=== PATIENT | male | born 1960 | race Caucasian/White ===

== ENCOUNTER 2017-11-12 19:05 | Observation (INO) | payer OTHER, BC ==
--- NOTE | 2017-11-12 20:21 | ER Document Report ---
ED Medical Screen (RME) - General Chief Complaint: Chest Pain > 30 Stated Complaint: SHORTNESS OF BREATH Time Seen by Provider: 11/12/17 20:20 Notes: 2 days of chest pain and chest tightness with shortness of breath. No previous history of coronary artery disease. TRAVEL OUTSIDE OF THE [place] IN LAST 30 DAYS: No - Related Data Allergies/Adverse Reactions: No Known Allergies Allergy (Unverified 11/12/17 19:06) Past Medical History - Past Medical History Cardiac Medical History: Reports: Hx Hypercholesterolemia, Hx Hypertension Endocrine Medical History: Reports: Hx Diabetes Mellitus Type 2 Past Surgical History: Reports: Hx Orthopedic Surgery - toe removed - Immunizations Hx Diphtheria, Pertussis, Tetanus Vaccination: Yes Physical Exam - Vital signs Vitals: Temp Pulse Resp BP Pulse Ox 98.2 F 73 20 164/77 H 97 11/12/17 19:28 11/12/17 19:28 11/12/17 19:28 11/12/17 19:28 11/12/17 19:28 Course - Vital Signs Vital signs: Temp Pulse Resp BP Pulse Ox 98.2 F 73 20 164/77 H 97 11/12/17 19:28 11/12/17 19:28 11/12/17 19:28 11/12/17 19:28 11/12/17 19:28
--- NOTE | 2017-11-12 21:40 | RADIOLOGY REPORT (SQ) ---
EXAM DESCRIPTION: CHEST PA/LAT COMPLETED DATE/TIME: 11/12/2017 9:23 pm REASON FOR STUDY: cp COMPARISON: 09/21/2010 EXAM PARAMETERS: NUMBER OF VIEWS: two views TECHNIQUE: Digital Frontal and Lateral radiographic views of the chest acquired. RADIATION DOSE: NA LIMITATIONS: none FINDINGS: LUNGS AND PLEURA: No consolidation, masses or pneumothorax. No pleural effusion. MEDIASTINUM AND HILAR STRUCTURES: Stable. HEART AND VASCULAR STRUCTURES: Heart upper limits of normal size. No evidence for failure. BONES: No acute findings. HARDWARE: None in the chest. OTHER: No other significant finding. IMPRESSION: No acute findings. TECHNICAL DOCUMENTATION: JOB ID: [id number] [place]-72 2010 [employer]- All Rights Reserved
[2017-11-12 21:44] LABS: ABSOLUTE BASOPHILS # (AUTO) 0.1 10^3/uL (0.0-0.2); ABSOLUTE EOSINOPHILS # (AUTO) 0.1 10^3/uL (0.0-0.6); ABSOLUTE LYMPHOCYTES (AUTO) 1.1 10^3/uL (0.5-4.7); ABSOLUTE MONOCYTES (AUTO) 1.4 10^3/uL (0.1-1.4); ABSOLUTE NEUT (AUTO) 8.8 10^3/uL (1.7-8.2); BASOPHILS % (AUTO) 0.5 % (0-2); EOSINOPHILS % (AUTO) 0.8 % (0-6); HEMATOCRIT 40.9 % (37.9-51.0); HEMOGLOBIN 13.6 g/dL (13.5-17.0); LYMPHOCYTES % (AUTO) 9.3 % (13-45); MEAN CORPUSCULAR HEMOGLOBIN 27.7 pg (27.0-33.4); MEAN CORPUSCULAR HGB CONC 33.3 g/dL (32.0-36.0); MEAN CORPUSCULAR VOLUME 83 fl (80-97); MONOCYTES % (AUTO) 12.1 % (3-13); PLATELET COUNT 287 10^3/uL (150-450); RED BLOOD COUNT 4.91 10^6/uL (4.35-5.55); RED CELL DISTRIBUTION WIDTH 14.7 % (11.5-14.0); SEGMENTED NEUTROPHILS % (AUTO) 77.3 % (42-78); TOTAL CELLS COUNTED % (AUTO) 100 %; WHITE BLOOD COUNT 11.4 10^3/uL (4.0-10.5)
[2017-11-12 22:16] LABS: ALANINE AMINOTRANSFERASE 54 U/L (21-72); ALBUMIN 4.1 g/dL (3.5-5.0); ALKALINE PHOSPHATASE 51 U/L (38-126); ANION GAP 12 (5-19); ASPARTATE AMINO TRANSFERASE 23 U/L (17-59); BILIRUBIN,DIRECT 0.3 mg/dL (0.0-0.4); BILIRUBIN,TOTAL 0.3 mg/dL (0.2-1.3); BLOOD UREA NITROGEN 20 mg/dL (7-20); CALCIUM 9.3 mg/dL (8.4-10.2); CARBON DIOXIDE 29 mmol/L (22-30); CHLORIDE 95 mmol/L (98-107); GLUCOSE 345 mg/dL (75-110); POTASSIUM 4.6 mmol/L (3.6-5.0); SODIUM 135.9 mmol/L (137-145); TOTAL PROTEIN 6.7 g/dL (6.3-8.2)
--- NOTE | 2017-11-12 23:15 | ER Document Report ---
ED Cardiac - General Chief Complaint: Chest Pain > 30 Stated Complaint: SHORTNESS OF BREATH Time Seen by Provider: 11/12/17 20:20 Notes: Patient is a 57-year-old male that comes emergency department for chief complaint of chest pain. Family states that he walked into the store, was pale and panting, stated that he had chest pain that radiated to his neck, stated that he "felt like he was having a heart attack". This happened during the afternoon. Patient states symptoms resolved and now he feels fine. He denies history of [place], past medical history includes hypertension, hyperlipidemia, type 2 diabetes, and a Charcot foot (wearing therapeutic boot). He does not smoke, no first-degree family history of [place], no history of blood clot. He reports generalized other symptoms including intermittent cough he cannot get rid of and passing of gas. TRAVEL OUTSIDE OF THE [place] IN LAST 30 DAYS: No - Related Data Allergies/Adverse Reactions: No Known Allergies Allergy (Unverified 11/12/17 19:06) Past Medical History - General Information source: Patient - Social History Smoking Status: Never Smoker Chew tobacco use (# tins/day): No Frequency of alcohol use: None Drug Abuse: None Lives with: Family Family History: Reviewed & Not Pertinent Patient has suicidal ideation: No Patient has homicidal ideation: No - Past Medical History Cardiac Medical History: Reports: Hx Hypercholesterolemia, Hx Hypertension Endocrine Medical History: Reports: Hx Diabetes Mellitus Type 2 Renal/ Medical History: Denies: Hx Peritoneal Dialysis Past Surgical History: Reports: Hx Orthopedic Surgery - toe removed - Immunizations Hx Diphtheria, Pertussis, Tetanus Vaccination: Yes Review of Systems - Review of Systems Constitutional: No symptoms reported EENT: No symptoms reported Cardiovascular: See HPI Respiratory: See HPI Gastrointestinal: No symptoms reported Genitourinary: No symptoms reported Male Genitourinary: No symptoms reported Musculoskeletal: No symptoms reported Skin: No symptoms reported Hematologic/Lymphatic: No symptoms reported Neurological/Psychological: No symptoms reported Physical Exam - Vital signs Vitals: Temp Pulse Resp BP Pulse Ox 98.2 F 73 20 164/77 H 97 11/12/17 19:28 11/12/17 19:28 11/12/17 19:28 11/12/17 19:28 11/12/17 19:28 Interpretation: Normal - General General appearance: Appears well, Alert In distress: None - HEENT Head: Normocephalic, Atraumatic Eyes: No: Normal - Left eye does not appear to be in use Extraocular movements intact: Yes Eyelashes: Normal Pupils: PERRL Mucous membranes: Normal Pharynx: Normal Neck: Normal - Respiratory Respiratory status: No respiratory distress Chest status: Nontender Breath sounds: Normal. No: Decreased air movement, Wheezing Chest palpation: Normal - Cardiovascular Rhythm: Regular. No: Tachycardia Heart sounds: Normal auscultation, S1 appreciated, S2 appreciated Murmur: No - Abdominal Inspection: Normal Distension: No distension Bowel sounds: Normal Tenderness: Nontender. No: Tender, Guarding - Back Back: Normal, Nontender. No: Tender - Extremities General upper extremity: Normal inspection, Nontender, Normal ROM, Normal strength General lower extremity: Other - Protective shoe on left foot, large protective/ forming boot on right foot and lower leg. No: Edema - Neurological Neuro grossly intact: Yes Cognition: Normal Orientation: AAOx4 Andrew Coma Scale Eye Opening: Spontaneous Andrew Coma Scale Verbal: Oriented [place] Coma Scale Motor: Obeys Commands [place] Coma Scale Total: 15 Speech: Normal Motor strength normal: LUE, RUE, LLE, RLE Sensory: Normal - Psychological Associated symptoms: Normal affect, Normal mood - Skin Skin Temperature: Warm Skin Moisture: Dry Skin Color: Normal Course - Re-evaluation Re-evalutation: EKG shows minimal ST segment elevation in the inferior leads, he had 3 EKGs total tonight and he showed no significant change. He is currently asymptomatic. His reported symptoms are concerning, he has multiple risk factors, his heart score is 6. CBC shows mild leukocytosis with no specific shift. Nonspecific. Chemistry shows hyperglycemia with no acidosis. Mild hyponatremia. D-dimer is not significantly elevated. Discussed with patient. Because of his multiple risk factors, concerning symptoms, and elevated heart score I recommended he be admitted for telemetry observation. Patient and family in agreement with this. Discussed with hospitalist Dr. Millan, patient will be accepted for telemetry monitoring. - Vital Signs Vital signs: Temp Pulse Resp BP Pulse Ox 98.2 F 73 20 164/77 H 97 11/12/17 19:28 11/12/17 19:28 11/12/17 19:28 11/12/17 19:28 11/12/17 19:28 - Laboratory Result Diagrams: 11/12/17 21:35 11/12/17 21:35 Laboratory results interpreted by me: 11/12/17 11/12/17 21:35 21:35 WBC 11.4 H RDW 14.7 H Lymphocytes % 9.3 L Absolute Neutrophils 8.8 H Sodium 135.9 L Chloride 95 L Glucose 345 H Discharge - Discharge Clinical Impression: Chest pain Qualifiers: Chest pain type: unspecified Qualified Code(s): R07.9 - Chest pain, unspecified Condition: Stable Disposition: ADMITTED OBSERVATION Admitting Provider: Hospitalist Unit Admitted: Telemetry
[2017-11-12] MEDS ORDERED: ASPIRIN 81 MG TABLET, CHEWABLE PO ONE (23:53)
[2017-11-13] MEDS ORDERED: INSULIN GLARGINE,HUM.REC.ANLOG 1,000 UNIT/10 ML UNIT SUBCUT ONE (01:19)
[2017-11-13] MEDS ORDERED: GLUCAGON,HUMAN RECOMB 1 MG INJ IM PRN (01:25)
[2017-11-13] MEDS ORDERED: DEXTROSE 50%-WATER 25 GM/50 ML DISP.SYRIN IV PRN ×2 (01:25)
[2017-11-13] MEDS ORDERED: NITROGLYCERIN 0.4 MG/TAB 25 TAB/BOTTLE SL PRN (01:25)
[2017-11-13] MEDS ORDERED: DEXTROSE 40% GEL 15 GM TUBE PO PRN ×2 (01:25)
[2017-11-13] MEDS ORDERED: ENOXAPARIN SODIUM INJ 150 MG/1 ML DISP.SYRIN SUBCUT ONE (02:00)
[2017-11-13] MEDS ORDERED: ASPIRIN 81 MG TABLET, CHEWABLE PO ONE (02:00)
--- NOTE | 2017-11-13 02:48 | PDOC H&P ---
History of Present Illness Admission Date/PCP: 11/13/17 00:30 Patient complains of: Chest pressure and pain across his shoulders History of Present Illness: SAFIA CHRISTIE is a 57 year old male who was in his normal state of health until today when he developed pressure in his chest and pain across his neck and shoulders. He presented to the emergency room where he was found to have ST elevations but not hyper acute changes. Enzymes were negative and patient was referred to us for further management and evaluation. Past Medical History Cardiac Medical History: Reports: Hyperlipidema, Hypertension Pulmonary Medical History: Reports: Chronic Obstructive Pulmonary Disease (COPD) , Sleep Apnea EENT Medical History: Reports: None Neurological Medical History: Reports: Other - Diabetic neuropathy Endocrine Medical History: Reports: Diabetes Mellitus Type 2 Musculoskeltal Medical History: Reports: Arthritis, Other - Charcot joint bilaterally Past Surgical History Past Surgical History: Reports: Orthopedic Surgery - toe removed Social History Information Source: Patient Lives with: Family, Spouse/Significant other Smoking Status: Never Smoker Frequency of Alcohol Use: Rare Hx Recreational Drug Use: No Drugs: None Hx Prescription Drug Abuse: No - Advance Directive Resuscitation Status: Full Code Surrogate healthcare decision maker:: His spouse Family History Family History: Malignancy Parental Family History Reviewed: Yes Children Family History Reviewed: Yes Sibling(s) Family History Reviewed.: Yes Medication/Allergy Home Medications: Canagliflozin [Invokana] 300 mg PO DAILY 11/13/17 Hydrochlorothiazide 25 mg PO DAILY 11/13/17 Insulin Aspart [Novolog Insulin 100 Unit/1 ml 10 ml] 18 unit SQ ACHS 11/13/17 Insulin Glargine,Hum.rec.anlog [Lantus] 100 unit SQ QHS 11/13/17 Losartan Potassium 50 mg PO DAILY 11/13/17 Metformin HCl [Metformin HCl ER] 1,000 mg PO BID 11/13/17 Metoprolol Succinate 100 mg PO DAILY 11/13/17 Simvastatin [Zocor 40 mg Tablet] 20 mg PO QHS 11/13/17 Spironolactone 25 mg PO DAILY 11/13/17 Allergies/Adverse Reactions: No Known Allergies Allergy (Unverified 11/12/17 19:06) Review of Systems Constitutional: ABSENT: anorexia, chills, fatigue, weakness Eyes: PRESENT: visual disturbances - Blind in the left eye Ears: ABSENT: hearing changes Nose, Mouth, and Throat: ABSENT: mouth pain, sore throat Cardiovascular: PRESENT: as per HPI Respiratory: ABSENT: cough, dyspnea, hemoptysis Gastrointestinal: ABSENT: abdominal pain, constipation, diarrhea, heartburn Genitourinary: ABSENT: dysuria, hematuria Musculoskeletal: ABSENT: joint swelling Integumentary: ABSENT: rash, wounds Neurological: PRESENT: abnormal gait, paresthesias Psychiatric: ABSENT: anxiety, depression, homidical ideation, suicidal ideation Endocrine: PRESENT: other - Hemoglobin A1c generally runs 7 or below Hematologic/Lymphatic: ABSENT: easy bleeding, easy bruising Physical Exam Vital Signs: Temp Pulse Resp BP Pulse Ox 98.2 F 73 20 164/77 H 97 11/12/17 19:28 11/12/17 19:28 11/12/17 19:28 11/12/17 19:28 11/12/17 19:28 General appearance: PRESENT: no acute distress, cooperative, morbidly obese Head exam: PRESENT: atraumatic, normocephalic Eye exam: PRESENT: other - Cornea opacified left eye Ear exam: PRESENT: normal external ear exam Neck exam: ABSENT: carotid bruit, JVD, meningismus Respiratory exam: PRESENT: chest wall tenderness, clear to auscultation julia, symmetrical, unlabored. ABSENT: accessory muscle use Cardiovascular exam: PRESENT: RRR. ABSENT: diastolic murmur, irregular rhythm, systolic murmur GI/Abdominal exam: PRESENT: normal bowel sounds, soft. ABSENT: organolmegaly, tenderness Rectal exam: PRESENT: deferred Extremities exam: PRESENT: other - Large ulcer dorsum of right foot full- thickness without purulent drainage Neurological exam: PRESENT: alert, awake, oriented to person, oriented to place , oriented to time, oriented to situation, abnormal gait Psychiatric exam: PRESENT: appropriate affect, normal mood. ABSENT: homicidal ideation, suicidal ideation Skin exam: PRESENT: dry, warm. ABSENT: cyanosis, intact - Ulcer on right foot, rash Results Laboratory Results: 11/12/17 11/12/17 11/12/17 21:35 21:35 21:35 WBC 11.4 H Hgb 13.6 Hct 40.9 Plt Count 287 D-Dimer Sodium 135.9 L Potassium 4.6 BUN 20 Creatinine 0.90 Glucose 345 H Troponin I < 0.012 Albumin 4.1 11/12/17 11/13/17 21:35 00:15 WBC Hgb Hct Plt Count D-Dimer 0.33 Sodium Potassium BUN Creatinine Glucose Troponin I < 0.012 Albumin EKG Comments: Slight ST elevations in the inferolateral leads unchanged over serial tracings Impressions: Chest X-Ray 11/12/17 20:21 IMPRESSION: No acute findings. 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; Z79.4 - care home (current) use of insulin; Z79.4 - intermodal dispatcher (current) use of insulin; Z79.4 - care home ( current) use of insulin; Z79.4 - care home (current) use of insulin Is this a current diagnosis for this admission?: Yes (3) HTN (hypertension) Qualifiers: Hypertension type: essential hypertension Qualified Code(s): I10 - Essential (primary) hypertension Is this a current diagnosis for this admission?: Yes (4) TRACEY (obstructive sleep apnea) Is this a current diagnosis for this admission?: Yes (5) 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 He will receive full dose Lovenox. He is already on an ARB and a beta-berenice, these will be continued. We will consult with cardiology as to the best means of stress testing as the patient obviously cannot run on a treadmill. He will be placed on telemetry. Serial enzymes and electrocardiograms will be done. At the patient's request we will discontinue his Invokana and start him back on Glucotrol as he had better response to that medication. Patient will receive local care to his foot ulcer.
[2017-11-13 04:17] LABS: APPEARANCE,URINE SLIGHTLY-CLOUDY; BILIRUBIN,URINE NEGATIVE (NEGATIVE); COLOR,URINE YELLOW; GLUCOSE, URINE >=500 mg/dL (NEGATIVE); KETONES,URINE NEGATIVE (NEGATIVE); LEUKOCYTE ESTERASE,URINE NEGATIVE (NEGATIVE); NITRITE,URINE NEGATIVE (NEGATIVE); PROTEIN,URINE NEGATIVE (NEGATIVE); URINE SPECIFIC GRAVITY 1.022; UROBILINOGEN,URINE NEGATIVE mg/dL (<2.0)
[2017-11-13 06:31] LABS: CHOLESTEROL 114.26 mg/dL (0-200); TRIGLYCERIDES 151 mg/dL (<150)
[2017-11-13] MEDS: INSULIN LISPRO 100 UNIT/ML 3 ML VIAL SUBCUT PRN ×2 (06:31→22:30)
[2017-11-13 06:40] LABS: CREATINE KINASE MB 0.37 ng/mL (<4.55)
[2017-11-13 06:43] LABS: DIRECT LDL 60 mg/dL (<100)
[2017-11-13 06:45] LABS: TROPONIN I < 0.012 ng/mL
[2017-11-13 06:46] LABS: VLDL CHOLESTEROL 30.2 mg/dL (10-31)
[2017-11-13] MEDS: INSULIN LISPRO 100 UNIT/ML 3 ML VIAL SUBCUT SCH ×3 (09:45→18:53)
[2017-11-13] MEDS: FAMOTIDINE 20 MG TABLET PO SCH ×2 (09:45→22:30)
[2017-11-13] MEDS: DOCUSATE SODIUM 100 MG CAPSULE PO SCH ×2 (09:45→18:51)
--- NOTE | 2017-11-13 12:01 | Progress Note ---
Provider Note Provider Note: Patient seen, examined, and chart reviewed. Patient reports that at work he lifts heavy objects ranging from 35 to 60 pounds daily. Patient states yesterday he was lifting extremely heavy object when he shortly afterwards he developed chest pain across his neck and shoulders. Daughter is present in room who reports that patient has been complaining of shortness of breath for the last few days. Patient reports that he has never had anything wrong with his heart and currently does not feel that this is heart related. Currently awaiting recommendations from cardiology. Patient's echo has been ordered and awaiting results. Unsure if cardiology will perform stress test here or recommend transfer for cardiac cath.
[2017-11-13] MEDS ORDERED: SIMVASTATIN 40 MG TABLET PO ONE (12:02)
--- NOTE | 2017-11-13 12:03 | EKG REPORT ---
SEVERITY:- ABNORMAL ECG - SINUS RHYTHM ST ELEVATION SUGGESTS PERICARDITIS : Confirmed by: Bj Atkinson 13-Nov-2017 12:02:39
--- NOTE | 2017-11-13 12:04 | EKG REPORT ---
SEVERITY:- BORDERLINE ECG - SINUS RHYTHM BORDERLINE ST ELEVATION, INFERIOR LEADS : Confirmed by: Bj Atkinson 13-Nov-2017 12:03:38
--- NOTE | 2017-11-13 12:04 | EKG REPORT ---
SEVERITY:- BORDERLINE ECG - SINUS RHYTHM PROBABLE LEFT ATRIAL ABNORMALITY BORDERLINE ST ELEVATION, INFERIOR LEADS : Confirmed by: Bj Atkinson 13-Nov-2017 12:03:46
--- NOTE | 2017-11-13 12:04 | EKG REPORT ---
SEVERITY:- BORDERLINE ECG - SINUS RHYTHM BORDERLINE ST ELEVATION, INFERIOR LEADS : Confirmed by: Bj Atkinson 13-Nov-2017 12:03:53
[2017-11-13 14:46] LABS: CREATINE KINASE MB < 0.22 ng/mL (<4.55); TROPONIN I < 0.012 ng/mL
[2017-11-13] MEDS: ENOXAPARIN SODIUM INJ 150 MG/1 ML DISP.SYRIN SUBCUT SCH (19:16)
--- NOTE | 2017-11-13 19:29 | XCELERA REPORT ---
[address] [address] Transthoracic Echocardiogram Report Name: SAFIA CHRISTIE Age: 57 yrs Gender: Male : 1960 Patient Status: Inpatient [address] Study Date: 11/13/2017 10:36 AM Height: 72 in Weight: 299 lb BSA: 2.5 m2 Procedure: A complete two-dimensional transthoracic echocardiogram was performed (2D, M-mode, spectral and color flow Doppler). The study was technically adequate with some images being suboptimal in quality. Reason For Study: CP Ordering Physician: BJ HAYS Performed By: Jodie Obando Interpretation Summary The left ventricular ejection fraction is normal. Doppler measurements suggest impaired left ventricular relaxation, which is associated with grade I/IV or mild diastolic dysfunction Wall motion cannot be accurately commented on, but no definite regional wall motion abnormalities noted. There is borderline concentric left ventricular hypertrophy. The left ventricle is grossly normal size. The right ventricle is borderline dilated. The right atrium is normal in size Borderline left atrial enlargement. There is no mitral valve stenosis. There is a trace amount of mitral regurgitation No aortic regurgitation is present. There is no aortic valve stenosis There is a trace or physiologic amount of tricuspid regurgitation Tricuspid regurgitation jet envelope not well defined to measure RV systolic pressure accurately. The aortic root is not well visualized but is probably normal size. The inferior vena cava appeared normal and decreased > 50% with respiration (RAP 5-10 mmHg) Minimal pericardial effusion. MMode/2D Measurements & Calculations RVDd: 3.0 cm LVIDd: 4.8 cm FS: 36.6 % Ao root diam: 3.2 cm IVSd: 0.98 cm LVIDs: 3.0 cm EDV(Teich): 105.2 ml LVPWd: 0.98 cm ESV(Teich): 35.4 ml Ao root area: 8.1 cm2 EF(Teich): 66.3 % LA dimension: 3.8 cm Doppler Measurements & Calculations MV E max fortunato: MV P1/2t max fortunato: Ao V2 max: LV V1 max P.2 cm/sec 101.7 cm/sec 130.3 cm/sec 4.9 mmHg MV A max fortunato: MV P1/2t: 78.6 msec Ao max PG: LV V1 max: 91.3 cm/sec 6.8 mmHg 111.1 cm/sec MV E/A: 1.1 MVA(P1/2t): 2.8 cm2 MV dec slope: 378.9 cm/sec2 MV dec time: 0.26 sec PA V2 max: 97.7 cm/sec PA max P.8 mmHg Left Ventricle The left ventricle is grossly normal size. There is borderline concentric left ventricular hypertrophy. The left ventricular ejection fraction is normal. Doppler measurements suggest impaired left ventricular relaxation, which is associated with grade I/IV or mild diastolic dysfunction. Wall motion cannot be accurately commented on, but no definite regional wall motion abnormalities noted. Right Ventricle The right ventricle is borderline dilated. There is normal right ventricular wall thickness. The right ventricular systolic function is normal. Atria The right atrium is normal in size. Borderline left atrial enlargement. Interarterial septum not well visualized and not well dopplered. Cannot comment on ASD/PFO presence. Mitral Valve The mitral valve is grossly normal. There is no mitral valve stenosis. There is a trace amount of mitral regurgitation. Aortic Valve The aortic valve is grossly normal. There is no aortic valve stenosis. No aortic regurgitation is present. Tricuspid Valve The tricuspid valve is not well visualized, but is grossly normal. There is no tricuspid stenosis. There is a trace or physiologic amount of tricuspid regurgitation. Tricuspid regurgitation jet envelope not well defined to measure RV systolic pressure accurately. Pulmonic Valve The pulmonic valve is not well visualized. Great Vessels The aortic root is not well visualized but is probably normal size. The inferior vena cava appeared normal and decreased > 50% with respiration (RAP 5-10 mmHg). Effusions Minimal pericardial effusion. : BJ HAYS > Bj Hays
[2017-11-13 19:44] LABS: TROPONIN I 0.012 ng/mL
[2017-11-13 19:47] LABS: CREATINE KINASE MB < 0.22 ng/mL (<4.55)
[2017-11-13] MEDS ORDERED: INSULIN GLARGINE,HUM.REC.ANLOG 300 UNIT/3 ML INSULN.PEN SUBCUT SCH (22:00)
[2017-11-13] MEDS ORDERED: INSULIN GLARGINE,HUM.REC.ANLOG 1,000 UNIT/10 ML UNIT SUBCUT SCH (22:00)
[2017-11-13] MEDS ORDERED: ASPIRIN 81 MG TABLET, CHEWABLE PO SCH (22:00)
[2017-11-13] MEDS ORDERED: SIMVASTATIN 40 MG TABLET PO SCH (22:00)
[2017-11-14] MEDS ORDERED: ENOXAPARIN SODIUM INJ 150 MG/1 ML DISP.SYRIN SUBCUT ONE (05:39)
[2017-11-14] MEDS: ENOXAPARIN SODIUM INJ 150 MG/1 ML DISP.SYRIN SUBCUT SCH ×2 (05:45→18:33)
[2017-11-14 06:34] LABS: HEMATOCRIT 36.9 % (37.9-51.0); HEMOGLOBIN 12.5 g/dL (13.5-17.0); MEAN CORPUSCULAR HEMOGLOBIN 28.3 pg (27.0-33.4); MEAN CORPUSCULAR HGB CONC 33.8 g/dL (32.0-36.0); MEAN CORPUSCULAR VOLUME 84 fl (80-97); PLATELET COUNT 226 10^3/uL (150-450); RED BLOOD COUNT 4.42 10^6/uL (4.35-5.55); RED CELL DISTRIBUTION WIDTH 14.8 % (11.5-14.0); WHITE BLOOD COUNT 6.9 10^3/uL (4.0-10.5)
--- NOTE | 2017-11-14 07:42 | EKG REPORT ---
SEVERITY:- BORDERLINE ECG - SINUS RHYTHM BORDERLINE ST ELEVATION, INFERIOR LEADS : Confirmed by: Valerie Dao MD 14-Nov-2017 07:40:39
[2017-11-14] MEDS: INSULIN LISPRO 100 UNIT/ML 3 ML VIAL SUBCUT SCH ×3 (08:59→17:12)
--- NOTE | 2017-11-14 09:58 | PDOC CONSULTATION ---
Consultation Consult Date: 11/13/17 Attending physician:: ELADIO BELLA Consult reason:: Chest pain History of Present Illness Admission Date/PCP: 11/13/17 00:30 Patient complains of: Chest pain History of Present Illness: SAFIA CHRISTIE is a 57 year old male who was in his normal state of health until today when he developed pressure in his chest and pain across his neck and shoulders. He presented to the emergency room where he was found to have ST elevations but not hyper acute changes. Enzymes were negative and patient was referred to us for further management and evaluation. Patient actually denied any prior history of myocardial infarction or known CAD. He does have however multiple cardiac risk factors including diabetes along with possible peripheral vascular disease as he has diabetic foot ulcers. I was therefore asked to evaluate patient. Patient has been chest pain-free since admission through the emergency room. Patient already is scheduled to have a 2D echo and a stress test. Past Medical History Cardiac Medical History: Reports: Hyperlipidema, Hypertension Pulmonary Medical History: Reports: Chronic Obstructive Pulmonary Disease (COPD) , Sleep Apnea EENT Medical History: Reports: None Neurological Medical History: Reports: Other - Diabetic neuropathy Endocrine Medical History: Reports: Diabetes Mellitus Type 2 Musculoskeltal Medical History: Reports: Arthritis, Other - Charcot joint bilaterally Past Surgical History Past Surgical History: Reports: Orthopedic Surgery - toe removed Social History Information Source: Patient Lives with: Family, Spouse/Significant other Smoking Status: Former Smoker Frequency of Alcohol Use: Rare Hx Recreational Drug Use: No Drugs: None Hx Prescription Drug Abuse: No - Advance Directive Resuscitation Status: Full Code Surrogate healthcare decision maker:: Patient's is the surrogate decision-maker Family History Family History: DM, Malignancy Parental Family History Reviewed: Yes Children Family History Reviewed: Yes Sibling(s) Family History Reviewed.: Yes Medication/Allergy Home Medications: Acidoph/L.bulg/Bif.b/S.thermop [Bacid Caplet] 1 tab PO DAILY 11/13/17 Canagliflozin [Invokana] 300 mg PO DAILY 11/13/17 Hydrochlorothiazide 25 mg PO DAILY 11/13/17 Insulin Aspart [Novolog Insulin 100 Unit/1 ml 10 ml] 0 unit SUBCUT .SLD SCALE Insulin Aspart [Novolog Insulin 100 Unit/1 ml 10 ml] 18 unit SQ ACHS 01/25/18 Insulin Glargine,Hum.rec.anlog [Lantus] 90 unit SQ QHS 11/13/17 Losartan Potassium 50 mg PO DAILY 11/13/17 Metformin HCl [Metformin HCl ER] 1,000 mg PO BIDBS 11/13/17 Metoprolol Succinate [Toprol Xl 50 mg Tab.sr] 50 mg PO DAILY 11/13/17 Multivitamin [Tab-A-Max (Multiple Vitamin) Tablet] 1 tab PO DAILY 11/13/17 Simvastatin [Zocor 20 mg Tablet] 20 mg PO QHS 11/13/17 Spironolactone 25 mg PO DAILY 11/13/17 Allergies/Adverse Reactions: No Known Allergies Allergy (Unverified 11/12/17 19:06) Review of Systems Review of Systems: Please see history of present illness and past medical history as wall. Constitutional: No fever or chills reported. Head : No recent chronic headaches, recent head injury. Eyes: No recent eye pain, diplopia, redness, discharge, acute visual changes. Ears: No recent chronic ear pain, acute hearing loss, ear discharge. Oral cavity: No recent ulcerations, bleeding, oral cavity discomfort. Neck: No recent acute neck pain reported. Hematologic: No recent easy bruising or bleeding or hematologic malignancy reported. Lymphatic: No recent lymphatic malignancy, chronic lymphadenopathy reported yet Cardiovascular system review: See history of present illness. Respiratory system review: No recent chronic cough, hemoptysis, blood clots in the lungs reported. Mild Shortness of breath on exertion Gastrointestinal system review: Negative for any recent acute or chronic abdominal pain, hematemesis, melena, recent change in bowel habits. Genitourinary system review: No recent acute or chronic hematuria, flank pain, UTI etc. reported. Skin system review: Negative for any recent abnormal bruising, no rash, no pruritus reported. Patient has diabetic foot ulcers. Neurologic: No prior history of strokes, mini strokes, seizure disorder. Psychologic: No history of major psychosis or major depression reported. Musculoskeletal: Minor aches and pains reported. No acute joint swelling reported. Diabetic foot ulcers with some diabetic neuropathy and Charcot's joints Endocrine: No recent polyuria, polydipsia, recent heat or cold intolerance. Physical Exam Vital Signs: Temp Pulse Resp BP Pulse Ox 98.0 F 72 16 137/69 H 95 11/13/17 16:00 11/13/17 19:00 11/13/17 16:00 11/13/17 16:00 11/13/17 16:00 Intake & Output 11/12/17 11/13/17 11/14/17 06:59 06:59 06:59 Intake Total 360 Balance 360 Weight 136 kg 136.078 kg Exam: GENERAL: well-nourished and in no acute distress. Alert and oriented x3 HEAD: Atraumatic, normocephalic. EYES: Pupils equal round and reactive to light, extraocular movements intact, sclera anicteric, conjunctiva are normal. ENT: TMs normal, nares patent, oropharynx clear without exudates. Moist mucous membranes. No oral ulcerations or bleeding gums noted NECK: supple without lymphadenopathy. Trachea is central. No cervical or axillary lymphadenopathy noted. Carotids are 2+, JVD WNL LUNGS: Respiration seems nonlabored, no significant accessory muscle action noted. Breath sounds clear to auscultation bilaterally and equal noted. No wheezes rales or rhonchi noted. No significant dullness noted on percussion. CHEST: Palpation of the chest wall shows no significant chest wall tenderness. No other significant abnormalities noted. HEART: [facility] [employer] WR[employer], No PSH, 1/6 K[place]AN aortic area, 1/6 chester systolic murmur mitral area, no rubs, no gallops. ABDOMEN: Soft, no significant tenderness appreciated, normoactive bowel sounds. No guarding, no rebound. No rigidity noted . No masses appreciated. EXTREMITIES: Pedal pulses are 1-2+, no calf tenderness noted. No clubbing or cyanosis. 1-2+ pedal edema noted NEUROLOGICAL: Focused neurological exam showed no significant neurologic deficit. Normal speech, no focal weakness appreciated. PSYCH: Normal mood, normal affect. Judgment and insight within normal limits. SKIN: Diabetic foot ulcer left foot, plantar aspect. Second toe amputated. MUSCULOSKELETAL EXAM: No significant joint swelling noted. Results Laboratory Results: 11/13/17 11/13/17 03:33 05:50 Triglycerides 151 H Cholesterol 114.26 LDL Cholesterol Direct 60 VLDL Cholesterol 30.2 HDL Cholesterol 44 Urine Color YELLOW Urine Appearance SLIGHTLY-CLOUDY Urine pH 5.0 Ur Specific Ranson 1.022 Urine Protein NEGATIVE Urine Glucose (UA) >=500 H Urine Ketones NEGATIVE Urine Blood SMALL H Urine Nitrite NEGATIVE Ur Leukocyte Esterase NEGATIVE Urine WBC (Auto) 1 Urine RBC (Auto) 1 11/13/17 11/13/17 11/13/17 05:50 13:38 18:45 CK-MB (CK-2) 0.37 < 0.22 < 0.22 Troponin I < 0.012 < 0.012 0.012 EKG Comments: Sinus rhythm with minor ST elevation inferior leads. Impressions: Chest X-Ray 11/12/17 20:21 IMPRESSION: No acute findings. Assessment & Plan - Diagnosis (1) Chest pain Qualifiers: Chest pain type: unspecified Qualified Code(s): R07.9 - Chest pain, unspecified Is this a current diagnosis for this admission?: Yes (2) Abnormal EKG Is this a current diagnosis for this admission?: Yes (3) DM2 (diabetes mellitus, type 2) Qualifiers: Diabetes mellitus complication status: with diabetic arthropathy Diabetes mellitus complication detail: with neuropathic arthropathy Diabetes mellitus shelter insulin use: with shelter use Qualified Code(s): E11.618 - Type 2 diabetes mellitus with other diabetic arthropathy; Z79.4 - USP (current) use of insulin; 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 (current) use of insulin; Z79.4 - USP ( current) use of insulin; Z79.4 - USP (current) use of insulin Is this a current diagnosis for this admission?: Yes (4) HTN (hypertension) Qualifiers: Hypertension type: essential hypertension Qualified Code(s): I10 - Essential (primary) hypertension Is this a current diagnosis for this admission?: Yes (5) Hypercholesteremia Is this a current diagnosis for this admission?: Yes (6) TRACEY (obstructive sleep apnea) Is this a current diagnosis for this admission?: Yes (7) Obesity, morbid, BMI 40.0-49.9 Is this a current diagnosis for this admission?: Yes (8) 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 Fortunately cardiac enzymes are negative but patient has high probability of underlying CAD. Agree with evaluation with nuclear stress test and this has been already scheduled by human service technician. Patient also is scheduled to have a 2D echocardiogram which will be reviewed. Abn EKG: evaluate with echocardiology and NST. Diabetes: Patient has multiple complications of diabetes. Recommend good control of diabetes but avoid any hyper or hypoglycemia. Hypertension: Reasonably well controlled. Blood pressure goal in this patient is 135/85 or less. This was discussed with the patient. Currently blood pressure under reasonable control. Better medication for this patient are TOMY inhibitor/ARB/beta berenice etc. discussed side effects of uncontrolled hypertension and also severe hypotension. Sleep apnea syndrome: Patient will benefit from compliance with CPAP therapy. I will be happy to follow patient regarding this. Obesity: Patient has been advised in weight loss. Charcot's arthropathy: Currently stable. NST and 2D echo. - Time Time Spent: 30 to 50 Minutes - CODE STATUS was discussed, patient remains full code. Surrogate decision-maker unchanged. Multiple medical problems were addressed. More than 50% of the time spent coordinating care, discussing management plans with involved caregivers. Management plans discussed with involved personnels. Medical decision making was of moderate to high complexity , patient's has multiple comorbidities. Medications reviewed and adjusted accordingly: Yes
[2017-11-14] MEDS: INSULIN LISPRO 100 UNIT/ML 3 ML VIAL SUBCUT PRN ×2 (12:13→17:13)
[2017-11-14] MEDS: FAMOTIDINE 20 MG TABLET PO SCH (12:14)
[2017-11-14] MEDS: DOCUSATE SODIUM 100 MG CAPSULE PO SCH ×2 (12:17→17:13)
--- NOTE | 2017-11-14 13:08 | DRAGON STRESS TEST REPORT ---
INTRAVENOUS LEXISCAN CARDIOLITE STRESS TEST USING SINGLE PHOTON EMMISION COMPUTERIZED TOMOGRAPHIC. DATE OF PROCEDURE: November 14, 2017, INDICATION : Chest pain, abnormal EKG CARDIAC RISK FACTORS: Diabetes, hypertension, dyslipidemia RESTING EKG: Sinus rhythm, nonspecific ST elevation, chronic in inferior leads STRESS EKG: No significant changes noted with LexiScan bolus REASON FOR TERMINATION: Protocol. PROCEDURE REPORT: Baseline heart rate 90 beats per minute with blood pressure of 151/59. Patient had no significant complaints. Heart rate at 2 minutes post bolus 106 with a blood pressure of 154/69. 3 minutes post bolus heart rate 100 with blood pressure of 157/62. No significant EKG changes were noted. Patient had no significant complaints during the procedure or postprocedure. Patient injected with Aminophyllin 75 mg at 3 minutes or later after Lexiscan bolus. CONCLUSIONS: Normal EKG and hemodynamic response to IV LexiScan. NUCLEAR DATA: At rest the patient was given 15.21 millicuries of technetium 99 sestamibi injected intravenously. As per protocol rest gated SPECT images were obtained. On day of stress test, the patient was given intravenous LexiScan at a dose of 0.4 mg in 5 mL intravenously, followed by flush with normal saline. Subsequently the stress dose of 45.0 millicuries of technetium 99 sestamibi was injected intravenously. As per protocol stress gated images were obtained. NUCLEAR INTERPRETATION: Both raw and processed data were used for interpretation. Visual, qualitative, computer-generated quantitative data was used. There was good myocardial uptake of technetium compound. Motion artifact and soft tissue attenuations were noted. Increased visceral uptake was noted. No definitive areas of transient perfusion defect noted, No definitive areas of fixed perfusion defect or scars noted. EKG gated imaging showed LV EF at 66 %, rest and stress gated EF similar visually. T. I D. ratio was 1.10. Lung heart ratio noted to be within normal limits 0.35. No significant extracardiac and abnormal radiotracer activities were noted. RV free wall uptake was noted to be WNL. IMPRESSION: Also refer to comments under nuclear interpretation. Also test results needs to be interpreted in the context of pretest probability. 1. No definitive areas of transient perfusion defect noted. 2. There is no definitive scintigraphic evidence of myocardial infarction/scar. 3. EKG gated imaging shows left ventricular ejection fraction of approx. 66 %. 4. Clinical correlation requested as occasionally single vessel disease or balanced ischemia could be missed. In approximately 10% of the cases Lexiscan may not cause adequate vasodilatory stress. 5. Patient would also need to be informed that inability to exercise is increased cardiovascular event risk by itself. Recommendations: Aggressive risk factor modification and medical management. Further evaluation may be needed if continued symptoms or other high risk indicators are noted on clinical evaluation. MTDD
[2017-11-14] MEDS ORDERED: AMINOPHYLLINE INJ/PF 250 MG/10 ML SDV IV ONE (13:24)
[2017-11-14] MEDS ORDERED: REGADENOSON INJ 0.4 MG/5 ML DISP.SYRIN IV ONE (13:24)
--- NOTE | 2017-11-14 16:26 | PDOC DISCHARGE SUMMARY ---
General - Admit/Disc Date/PCP Admission Date/Primary Care Provider: 11/13/17 00:30 Discharge Date: 11/14/17 - Discharge Diagnosis (1) Musculoskeletal pain Is this a current diagnosis for this admission?: Yes Summary: Patient's chest discomfort is secondary to muscular skeletal pain. Patient reported that he had been lifting heavy objects at work when pain occurred. (2) Chest pain Is this a current diagnosis for this admission?: Yes Summary: Ruled out: Patient and nuclear stress test demonstrated no evidence of ischemia. Patient's troponins were also negative as well. Patient's cholesterol medicine was increased patient will need a follow-up PCP in [address] Atkinson in 1 week. (3) Abnormal EKG Is this a current diagnosis for this admission?: Yes Summary: Nuclear stress test negative for ischemia and troponins were negative as well (4) DM2 (diabetes mellitus, type 2) Is this a current diagnosis for this admission?: Yes Summary: Patient's hemoglobin A1c was 8.8. Patient will need a follow-up PCP for adjustment of glycemic medications. (5) HTN (hypertension) Is this a current diagnosis for this admission?: Yes Summary: We will continue patient on current medications. (6) TRACEY (obstructive sleep apnea) Is this a current diagnosis for this admission?: Yes Summary: Patient will need to follow Dr. Atkinson for possible outpatient sleep study. (7) Obesity, morbid, BMI 40.0-49.9 Is this a current diagnosis for this admission?: Yes Summary: Encourage dietary changes and weight loss. - Additional Information Resuscitation Status: Full Code Discharge Diet: Cardiac, Diabetic Discharge Activity: Activity As Tolerated Prescriptions: Simvastatin [Zocor 40 mg Tablet] 40 mg PO QHS #30 tablet Home Medications: Acidoph/L.bulg/Bif.b/S.thermop [Bacid Caplet] 1 tab PO DAILY 11/13/17 Canagliflozin [Invokana] 300 mg PO DAILY 11/13/17 Hydrochlorothiazide 25 mg PO DAILY 11/13/17 Insulin Aspart [Novolog Insulin (Aspart) 100 unit/mL] 0 unit SUBCUT .SLD SCALE 11/13/17 Insulin Aspart [Novolog Insulin (Aspart) 100 unit/mL] 18 unit SQ ACHS 11/13/17 Insulin Glargine,Hum.rec.anlog [Lantus] 90 unit SQ QHS 11/13/17 Losartan Potassium 50 mg PO DAILY 11/13/17 Metformin HCl [Metformin HCl ER] 1,000 mg PO BIDBS 11/13/17 Metoprolol Succinate [Toprol Xl 50 mg Tab.sr] 50 mg PO DAILY 11/13/17 Multivitamin [Tab-A-Max (Multiple Vitamin) Tablet] 1 tab PO DAILY 11/13/17 Spironolactone 25 mg PO DAILY 11/13/17 Aspirin [Aspirin 81 mg Chewable Tablet] 81 mg PO QHS tab.chew 11/14/17 Simvastatin [Zocor 40 mg Tablet] 40 mg PO QHS #30 tablet 11/14/17 History of Present Illness Patient complains of: Chest pain History of Present Illness: SAFIA CHRISTIE is a 57 year old male presents with complaint of chest pain after lifting heavy object at work. Patient states that chest pain was accompanied by shortness of breath. Patient states that he was heavy objects all day long however has never had chest pain like this. Patient was admitted to hospital under observation for chest pain. Hospital Course Hospital Course: Patient is a 57-year-old gentleman that presents to our facility with complaint of chest pain after lifting heavy objects at work. Patient's troponins were negative however EKG did show ST elevation. Patient had nuclear stress test demonstrated no evidence of ischemia. Patient's cholesterol medication was adjusted. Patient was instructed that we need to follow-up with his PCP for better glycemic control. Physical Exam Vital Signs: Temp Pulse Resp BP Pulse Ox 98.4 F 80 19 160/61 H 95 11/14/17 11:52 11/14/17 11:52 11/14/17 11:52 11/14/17 11:52 11/14/17 11:52 Intake & Output 11/13/17 11/14/17 11/15/17 06:59 06:59 06:59 Intake Total 882 Balance 882 Weight 136 kg 136.078 kg 136.078 kg General appearance: PRESENT: no acute distress, well-developed, well-nourished Head exam: PRESENT: atraumatic, normocephalic Eye exam: PRESENT: conjunctiva pink, EOMI. ABSENT: scleral icterus Ear exam: PRESENT: normal external ear exam Mouth exam: PRESENT: moist, tongue midline Neck exam: ABSENT: carotid bruit, JVD, lymphadenopathy, thyromegaly Respiratory exam: PRESENT: clear to auscultation julia. ABSENT: rales, rhonchi, wheezes Cardiovascular exam: PRESENT: RRR. ABSENT: diastolic murmur, rubs, systolic murmur Pulses: PRESENT: normal dorsalis pedis pul Vascular exam: PRESENT: normal capillary refill GI/Abdominal exam: PRESENT: normal bowel sounds, soft. ABSENT: distended, guarding, mass, organolmegaly, rebound, tenderness Rectal exam: PRESENT: deferred Extremities exam: PRESENT: full ROM. ABSENT: calf tenderness, clubbing, pedal edema Neurological exam: PRESENT: alert, awake, oriented to person, oriented to place , oriented to time, oriented to situation, normal gait Psychiatric exam: PRESENT: appropriate affect, normal mood. ABSENT: homicidal ideation, suicidal ideation Skin exam: PRESENT: dry, intact, warm. ABSENT: cyanosis, rash Results Laboratory Results: 11/14/17 05:58 11/14/17 05:58 WBC 6.9 RBC 4.42 Hgb 12.5 L Hct 36.9 L MCV 84 MCH 28.3 MCHC 33.8 RDW 14.8 H Plt Count 226 11/13/17 11/13/17 11/13/17 05:50 13:38 18:45 CK-MB (CK-2) 0.37 < 0.22 < 0.22 Troponin I < 0.012 < 0.012 0.012 Impressions: Chest X-Ray 11/12/17 20:21 IMPRESSION: No acute findings. Plan Time Spent: Less than 30 Minutes
[2017-11-14 17:49] VITALS: BP 137/69
--- NOTE | 2017-11-14 20:19 | PDOC PROGRESS REPORT ---
Subjective Progress Note for:: 11/14/17 Subjective:: Patient seems to be doing better with gradual improvement. Pt is denying any chest arm or neck discomfort. Patient denying any PND, orthopnea. Patient denied any sustained palpitations, dizziness, syncope, near syncope. Patient denying any fever chills. Patient denying any other significant discomfort. Patient is maintaining sinus rhythm. Review of systems: Rest review of systems negative. Medications: Medications have been reviewed. Reason For Visit: CHEST PAIN;FOOT ULCER;TRACEY Physical Exam Vital Signs: Temp Pulse Resp BP Pulse Ox 98.3 F 74 20 137/69 H 97 11/14/17 17:47 11/14/17 17:47 11/14/17 17:47 11/14/17 17:47 11/14/17 17:47 Intake & Output 11/13/17 11/14/17 11/15/17 06:59 06:59 06:59 Intake Total 882 695 Balance 882 695 Weight 136 kg 136.078 kg 136.078 kg Exam: GENERAL: well-nourished and in no acute distress. Alert and oriented x3 HEAD: Atraumatic, normocephalic. EYES: Pupils equal round and reactive to light, extraocular movements intact, sclera anicteric, conjunctiva are normal. ENT: TMs normal, nares patent, oropharynx clear without exudates. Moist mucous membranes. No oral ulcerations or bleeding gums noted NECK: supple without lymphadenopathy. Trachea is central. No cervical or axillary lymphadenopathy noted. Carotids are 2+, JVD WNL LUNGS: Respiration seems nonlabored, no significant accessory muscle action noted. Breath sounds clear to auscultation bilaterally and equal noted. No wheezes rales or rhonchi noted. No significant dullness noted on percussion. CHEST: Palpation of the chest wall shows no significant chest wall tenderness. No other significant abnormalities noted. HEART: [place] [employer], No PSH, 1/6 [place] aortic area, 1/6 chester systolic murmur mitral area, no rubs, no gallops. ABDOMEN: Soft, no significant tenderness appreciated, normoactive bowel sounds. No guarding, no rebound. No rigidity noted . No masses appreciated. EXTREMITIES: Pedal pulses are 1-2+, no calf tenderness noted. No clubbing or cyanosis. 1-2+ pedal edema noted NEUROLOGICAL: Focused neurological exam showed no significant neurologic deficit. Normal speech, no focal weakness appreciated. PSYCH: Normal mood, normal affect. Judgment and insight within normal limits. SKIN: Diabetic foot ulcer left foot, plantar aspect. Second toe amputated. MUSCULOSKELETAL EXAM: No significant joint swelling noted. Results Laboratory Results: 11/14/17 05:58 11/14/17 05:58 WBC 6.9 RBC 4.42 Hgb 12.5 L Hct 36.9 L MCV 84 MCH 28.3 MCHC 33.8 RDW 14.8 H Plt Count 226 11/13/17 11/13/17 11/13/17 05:50 13:38 18:45 CK-MB (CK-2) 0.37 < 0.22 < 0.22 Troponin I < 0.012 < 0.012 0.012 EKG Comments: EKG is reviewed. No acute ST-T wave changes noted except for some baseline ST elevation in inferior leads which are noted to be chronically present. Impressions: Chest X-Ray 11/12/17 20:21 IMPRESSION: No acute findings. Assessment & Plan - Diagnosis (1) Chest pain Qualifiers: Chest pain type: unspecified Qualified Code(s): R07.9 - Chest pain, unspecified Is this a current diagnosis for this admission?: Yes (2) Abnormal EKG Is this a current diagnosis for this admission?: Yes (3) DM2 (diabetes mellitus, type 2) Qualifiers: Diabetes mellitus complication status: with diabetic arthropathy Diabetes mellitus complication detail: with neuropathic arthropathy Diabetes mellitus intermediate frame tender insulin use: with correction use Qualified Code(s): E11.618 - Type 2 diabetes mellitus with other diabetic arthropathy; 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 (current) use of insulin; 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 (current) use of insulin; 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 ( current) use of insulin; 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 (current) use of insulin Is this a current diagnosis for this admission?: Yes (4) HTN (hypertension) Qualifiers: Hypertension type: essential hypertension Qualified Code(s): I10 - Essential (primary) hypertension Is this a current diagnosis for this admission?: Yes (5) Hypercholesteremia Is this a current diagnosis for this admission?: Yes (6) TRACEY (obstructive sleep apnea) Is this a current diagnosis for this admission?: Yes (7) Obesity, morbid, BMI 40.0-49.9 Is this a current diagnosis for this admission?: Yes (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 This was evaluated with a nuclear stress test. Nuclear stress test was negative for any significant areas of ischemia or any significant areas of scar. The nuclear stress test is felt to be relatively low risk. Patient informed that occasionally single- vessel disease and balanced ischemia could be missed. Patient advised aggressive risk factor modification and medical therapy. Patient informed that further evaluation may become necessary if symptoms worsens or there is a development of new symptoms indicative of angina or angina equivalent symptom. Abnormal EKG: Chronic, possible early repolarization changes. Hypertension: Blood pressure is stable. Recommend TOMY inhibitor/ARB for better control of blood pressure. Dyslipidemia: Recommend a statin therapy with LDL goal of less than 70. Obesity and sleep apnea syndrome: Patient encouraged weight loss and good management of sleep apnea syndrome. - Time Time with patient: Greater than 35 minutes - Patient was seen multiple times. Total time exceeds 40 minutes. In the morning nuclear stress test procedure, risks benefits, alternatives were discussed. Patient seen during the stress test. Patient also seen after stress test when results were discussed with the patient in detail. Patient's questions were answered. Nuclear stress test results were discussed with the patient. Patient was informed that no definitive evidence of pharmacologic stress-induced ischemia noted. No definite fixed defects were noted. Patient informed that occasionally significant single vessel disease or balanced ischemia could be missed. However based on the current study results, would recommend aggressive risk factor modification and medical therapy. It may also be worthwhile to consider evaluation or empiric management of other causes of chest pain. Should no other cause be found and if persistent in having chest pain, then cardiac catheterization should be considered. Right now, recommendations are for aggressive risk factor modification and medical management. Medications reviewed and adjusted accordingly: Yes
== END 2017-11-14 18:15 | disposition home or self-care (01) ==
LOC: ER 19:05 → EH 11-13 00:30 → 4N 11-13 12:51
PROVIDERS: ADMIT Internal Medicine; ATTEND Internal Medicine
PROC: 5A09357 Assistance with Respiratory Ventilation, Less than 24 Consecutive Hours, Continuous Positive Airway Pressure (ICD-10-PCS; principal; 2017-11-13)
DX: R07.89 Other chest pain (principal); R94.31 Abnormal electrocardiogram [ECG] [EKG]; E11.610 Type 2 diabetes mellitus with diabetic neuropathic arthropathy; E11.621 Type 2 diabetes mellitus with foot ulcer; L97.529 Non-pressure chronic ulcer of other part of left foot with unspecified severity; L97.518 Non-pressure chronic ulcer of other part of right foot with other specified severity; E11.65 Type 2 diabetes mellitus with hyperglycemia; G47.33 Obstructive sleep apnea (adult) (pediatric); I10 Essential (primary) hypertension; E66.01 Morbid (severe) obesity due to excess calories; M19.90 Unspecified osteoarthritis, unspecified site; E78.00 Pure hypercholesterolemia, unspecified; R26.9 Unspecified abnormalities of gait and mobility; D72.829 Elevated white blood cell count, unspecified; E87.1 Hypo-osmolality and hyponatremia; H54.62 Unqualified visual loss, left eye, normal vision right eye; Z68.41 Body mass index [BMI] 40.0-44.9, adult; Z87.891 Personal history of nicotine dependence; Z83.3 Family history of diabetes mellitus; Z89.422 Acquired absence of other left toe(s); Z79.4 Long term (current) use of insulin; Z79.899 Other long term (current) drug therapy
CPT/HCPCS: 36415; 71046; 78452; 80053; 80061; 81001; 82553; 82962; 83036; 84484; 85025; 85027; 85379; 93005; 93010; 93017; 93306; 94660; 96372; 99285; A9500; G0378; J0280; J1815; J2785; J3490; Q9969